=== PATIENT | male | born 1955 | race American Indian/Alaskan Native ===

== ENCOUNTER 2019-11-19 09:10 | Outpatient (CLI) | payer OTHER ==
[2019-11-19 10:33] LABS: Blood Urea Nitrogen 12 mg/dL (9-20)
--- NOTE | 2019-11-19 11:32 | Cat Scan Report ---
CT abdomen pelvis w con INDICATION: R10.816 Epigastric abdominal tenderness/Z12.11Encounter for scree. TECHNIQUE: All CT scans at this location are performed using CT dose reduction for ALARA by means of automated e xposure control. COMPARISON: None available. FINDINGS: Lung bases are clear of acute disease. Liver, gallbladder, spleen, pancreas, kidneys and adrenals are negative. Abdominal aorta is normal in size. No adenopathy. Pelvis Urinary bladder and distal ureters are negative. Prostate is mildly enlarged. Mild sigmoid diverticul osis, with slight wall thickening but no evidence of diverticulitis. Normal appendix. No skeletal lesions. IMPRESSION: 1. No acute abnormalities. Signer Name: Maninder Pina MD Signed: 11/19/2019 11:28 AM Workstation Name: [id number]
== END 2019-11-19 09:11 | disposition home or self-care (01) ==
LOC: CT 09:10
PROVIDERS: ATTEND Internal Medicine
DX: Z12.11 Encounter for screening for malignant neoplasm of colon (principal); N40.0 Benign prostatic hyperplasia without lower urinary tract symptoms; K57.30 Diverticulosis of large intestine without perforation or abscess without bleeding
CPT/HCPCS: 36415; 74177; 82565; 84520; Q9967